=== PATIENT | female | born 1990 | race Hispanic/Latino ===

== ENCOUNTER 2018-02-13 11:39 | Emergency (ER) | payer OTHER ==
[~2018-02-13] VITALS: Ht 167.6 cm; Wt 68.0 kg
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
== END 2018-02-13 13:55 | disposition home or self-care (01) ==
LOC: ER 11:39
DX: O26.91 Pregnancy related conditions, unspecified, first trimester (principal); M54.2 Cervicalgia; S13.4XXA Sprain of ligaments of cervical spine, initial encounter; Y04.8XXA Assault by other bodily force, initial encounter; Y92.008 Other place in unspecified non-institutional (private) residence as the place of occurrence of the external cause
CPT/HCPCS: 70490; 99284